=== PATIENT | female | born 1990 | race Caucasian/White ===

== ENCOUNTER 2018-10-08 00:42 | Emergency (ER) | payer SELFPAY ==
--- NOTE | 2018-10-08 02:29 | RADIOLOGY REPORT (SQ) ---
EXAM DESCRIPTION: XR ANKLE 3 OR MORE VIEWS COMPLETED DATE/TME: 10/08/2018 00:00 CLINICAL HISTORY: 28 years, Female, bone pain COMPARISON: None. NUMBER OF VIEWS: 3 TECHNIQUE: 3 views left ankle LIMITATIONS: None. FINDINGS: Mild lateral soft tissue swelling. Small calcaneal spur. Negative for acute fracture or dislocation. Ankle mortise is intact IMPRESSION: No acute osseous abnormality copyright 2010 [employer]- All Rights Reserved
--- NOTE | 2018-10-08 02:44 | ER Document Report ---
HPI - HPI Time Seen by Provider: 10/08/18 02:29 Pain Level: 4 Context: Patient is a 28-year-old female that comes to the emergency department for chief complaint of left ankle pain. She states that 5 weeks ago she twisted the ankle stepping off a curb and was told she had a fracture, she states she was wearing the splint initially, then the cast, cast got wet, she took off the cast after couple weeks, she was given a boot, and then she forgot the boot in [facility]. She was being seen by [facility]. She states that now walking on the ankle swelling has gotten a little bit worse and she became concerned. She denies reinjury otherwise. She denies any other complaints. - REPRODUCTIVE Reproductive: DENIES: : - MUSCULOSKELETAL Musculoskeletal: REPORTS: Extremity pain - left ankle Past Medical History - General Information source: Patient - Social History Smoking Status: Current Every Day Smoker Chew tobacco use (# tins/day): No Frequency of alcohol use: None Drug Abuse: None Lives with: Family Family History: Reviewed & Not Pertinent Patient has suicidal ideation: No Patient has homicidal ideation: No - Medical History Medical History: Negative Renal/ Medical History: Denies: Hx Peritoneal Dialysis Past Surgical History: Reports: Hx Tonsillectomy - Immunizations Hx Diphtheria, Pertussis, Tetanus Vaccination: Yes Vertical Provider Document - CONSTITUTIONAL General Appearance: WD/WN, No Apparent Distress - INFECTION CONTROL TRAVEL OUTSIDE OF THE [place] IN LAST 30 DAYS: No - HEENT HEENT: Atraumatic, Normal ENT Exam, Normocephalic - NECK Neck: Normal Inspection - RESPIRATORY Respiratory: Breath Sounds Normal, No Respiratory Distress - CARDIOVASCULAR Cardiovascular: Regular Rate, Regular Rhythm - GI/ABDOMEN Gastrointestinal: Abdomen Soft, Abdomen Non-Tender - BACK Back: Normal Inspection - MUSCULOSKELETAL/EXTREMETIES Musculoskeletal/Extremeties: MAEW, FROM, Tender - There is some tenderness and very mild soft tissue swelling over the left lateral malleolus and dorsum of the foot. Capillary refill and sensation intact, range of motion of the ankle is painful but present, leg, knee, hip exam unremarkable. - NEURO Level of Consciousness: Awake, Alert, Appropriate Motor/Sensory: No Motor Deficit, No Sensory Deficit - DERM Integumentary: Warm, Dry, No Rash Course - Re-evaluation Re-evalutation: X-ray reviewed and read by radiology, completely unremarkable. No signs of recent fracture. Based on patient's description I suspect she had an avulsion fracture which is now healed. Her evaluation is consistent with soft tissue swelling that would be seen in a sprain, most likely overactivity without complete resolution. Patient states she has been walking on this a lot. Discussed avulsion fractures, ankle sprain, recommendations. Provided with crutches, ankle stirrup and Abdulaziz wrap, discussed follow-up, discussed return precautions. Patient states understanding and agreement. - Vital Signs Vital signs: Temp Pulse Resp BP Pulse Ox 98.1 F 92 16 136/92 H 98 10/08/18 01:17 10/08/18 01:17 10/08/18 01:17 10/08/18 01:10/08/18 01:17 Procedures - Immobilization Left ankle Pre-Proc Neuro Vasc Exam: Normal Immobilizer type: Abdulaziz wrap, Ankle stirrup Performed by: PCT Post-Proc Neuro Vasc Exam: Normal Alignment checked and good: Yes Discharge - Discharge Clinical Impression: Left ankle swelling Left ankle pain Qualifiers: Chronicity: acute Qualified Code(s): M25.572 - Pain in left ankle and joints of left foot Condition: Stable Disposition: HOME, SELF-CARE Additional Instructions: Your x-ray does not show any concerning findings. Your evaluation is consistent with a previous avulsion fracture and now soft tissue swelling from the tendon injury in the ankle. If you can resolve the soft tissue swelling your symptoms should go away and there does not appear to be any necessary follow-up afterwards. I recommend that you use the crutches, ankle stirrup, Abdulaziz wrap for the next 2 to 3 days, ice 3-4 times a day for 10 to 15 minutes, take [id number] anti-inflammatory such as ibuprofen or naproxen. Return if you worsen including severe swelling or pain.
[2018-10-08 03:06] VITALS: BP 131/92
== END 2018-10-08 03:16 | disposition home or self-care (01) ==
LOC: ER 00:42
DX: M25.572 Pain in left ankle and joints of left foot (principal); M25.472 Effusion, left ankle; X50.0XXA Overexertion from strenuous movement or load, initial encounter; F17.200 Nicotine dependence, unspecified, uncomplicated
CPT/HCPCS: 73610; L1902; 99283